=== PATIENT | female | born 2000 | race Caucasian/White ===

== ENCOUNTER 2021-03-02 11:23 | Emergency (ER) | payer OTHER, SELFPAY ==
--- NOTE | ~2021-03-02 | XR_ITS ---
EXAMINATION: XR soft tissue neck DATE: 03/02/2021 16:18 INDICATION: Throat pain. TECHNIQUE: 2 views of the neck soft tissues were obtained. COMPARISON: None. FINDINGS: The adenoids and palatine tonsils are enlarged. The epiglottis, prevertebral soft tissues, and glottis are normal. No radiopaque foreign body. IMPRESSION: 1. Enlarged adenoids and palatine tonsils. Reviewed, dictated and finalized at location A.
--- NOTE | ~2021-03-02 | XR_ITS ---
EXAMINATION: XR chest 2V DATE: 03/02/2021 12:02 INDICATION: Stuck pill , sternal pain. TECHNIQUE: PA and lateral views of the chest were obtained. COMPARISON: Chest radiograph dated 07/21/2013 FINDINGS: The lungs remain clear with no focal airspace opacities, pulmonary edema, pleural effusion or pneumot horax. No radiopaque foreign bodies or evident localized air-trapping. The cardiomediastinal silhouet te is normal. Visualized bones and soft tissues are unremarkable. IMPRESSION: 1. Normal chest radiograph. Reviewed, dictated and finalized at location A. IMPRESSION: 1. Normal chest radiograph.
[2021-03-02 11:39] VITALS: BP 117/79; PULSE 92; RESP 17; TEMP 36.8; O2SAT 98
[2021-03-02 14:16] VITALS: BP 129/77; PULSE 112; RESP 18; O2SAT 97
--- NOTE | 2021-03-02 16:04 | ECG_ITS ---
Measurements Intervals [place] Rate: 87 P: 62 [place]: 96 QRS: 64 QRSD: 90 T: 1 QT: 366 QTc: 440 Interpretive Statements ECTOPIC ATRIAL RHYTHM BORDERLINE T WAVE ABNORMALITY- INFERIOR LEADS ABNORMAL ECG Electronically Signed On 03-02-2021 20:13:32 CDT by Pedro Major D.O.
--- NOTE | 2021-03-02 16:05 | ED.GENADULT ---
HPI - General Adult General Chief complaint: Skin/Abscess/Foreign Body Stated complaint: esophagitis? Time Seen by Provider: 03/02/21 16:00 Source: RN notes reviewed History of Present Illness HPI narrative: Patient presents emergency department from home for throat pain. Patient states symptoms began on 02/26 when she attempted to swallow a doxycycline pill she states at that time she did feel like the pill becomes stuck in her throat states since that time she had pain in the lower midsternal chest that is worse with eating and swallowing she states she is able to eat and drink it just is more painful to do so she denies any fevers or chills shortness of breath abdominal pain nausea vomiting or any other symptoms Related Data Home Medications Medication Instructions Recorded Confirmed citalopram 20 mg tablet 20 mg PO DAILY 12/18/20 Allergies Allergy/AdvReac Type Severity Reaction Status Date / Time No Known Allergies Allergy Verified 12/18/20 13:08 Review of Systems Review of Systems: Gen.: Denies fevers or chills ENT: Reports throat pain Respiratory: Denies shortness of breath or cough CV: Denies chest pain or palpitations GI: Denies abdominal pain nausea, emesis or diarrhea Musculoskeletal: Denies back pain or muscle pain Neuro: Denies numbness, tingling, weakness or focal weakness Skin: Denies rash Except as documented, all other systems reviewed and negative [facility] Past Medical History Medical History Depression Surgical History Surgical History [place] teeth removed Social History Social History Smoking status: Never smoker Alcohol intake: never Drinks per week: 2 Substance use: never Exam Narrative: APPEARANCE: No acute distress, nontoxic, resting in bed EYES: EOMI HEENT: Normocephalic, atraumatic, OMM no erythema or exudate posterior pharynx tonsils 2+ uvula midline no trismus tolerating own secretions RESPIRATORY: No respiratory distress Clear to auscultation bilaterally with no rhonchi wheezing or rales. CARDIOVASCULAR: Regular rate and rhythm without murmurs rubs or gallops. ABDOMINAL: Soft, nontender, nondistended, no rebound or guarding MUSCULOSKELETAl: Moves all extremities. No clubbing, cyanosis or edema. NEURO: Awake and alert. Following commands, speech normal, no focal deficits SKIN:: Warm, dry. No rashes lesions or abrasions PSYCHIATRIC: Normal affect/mood, Course Course Emergency Course: Discussed with patient results of workup and diagnosis. Discussed need for follow-up with primary care, proper use of medication, and reasons to return to the emergency department. Patient understands and agrees to current treatment plan discussed with patient referral for GI with follow-up as an outpatient Vital Signs Vital signs: Vital Signs Temperature 98.2 F 03/02/21 11:39 Pulse Rate 92 03/02/21 11:39 Respiratory Rate 17 03/02/21 11:39 Blood Pressure 117/79 03/02/21 11:39 Pulse Oximetry 98 03/02/21 11:39 Temperature 98.2 F 03/02/21 11:39 Pulse Rate 95 03/02/21 16:20 Respiratory Rate 16 03/02/21 16:20 Blood Pressure 154/89 H 03/02/21 16:20 Pulse Oximetry 100 03/02/21 16:20 Medical Decision Making [facility] Narrative Medical decision making narrative: Patient presents emergency department from home for throat pain after taking doxycycline x-ray showed no acute process troponin D-dimer within normal limits as well as normal EKG there is no signs of foreign body seen on CT scan the patient is tolerating her own secretions feel this is likely esophagitis will start on Protonix with patient given GI for follow-up Vital Signs Vital Signs: Vital Signs Temperature 98.2 F 03/02/21 11:39 Pulse Rate 92 03/02/21 11:39 Respiratory Rate 17 03/02/21 11:39 Blood Pressure 117/79 03/02/21 11:3
[2021-03-02 16:20] VITALS: BP 154/89; PULSE 95; RESP 16; O2SAT 100
[2021-03-02 16:33] LABS: Basophils Percent Auto 0.5 % (0.2-1.2); Eosinophils Absolute Auto 0.2 K/mm3 (0-0.3); Eosinophils Percent Auto 2.6 % (0-4.4); Hematocrit 38.5 % (37.0-47.0); Hemoglobin 12.9 g/dL (12.0-15.0); Immature Granulocyte Absolute 0.02 K/mm3 (0.00-0.031); Immature Granulocyte Percent A 0.3 % (0-0.5); Lymphocytes Absolute Auto 1.62 K/mm3 (0.9-3.2); Lymphocytes Percent Auto 26.3 % (18.3-44.2); Mean Corpuscular HGB Conc 33.5 g/dl (32-36); Mean Corpuscular Volume 95.5 fl (80-100); Mean Platelet Volume 10.6 fl (7.4-10.4); Monocytes Absolute Auto 0.4 K/mm3 (0.1-0.6); Monocytes Percent Auto 6.3 % (2.6-8.5); Platelet Count Result 225 k/mm3 (150-375); Red Blood Count 4.03 M/mm3 (4.2-5.4); Red Cell Distribution Width 11.7 % (11.5-14.5); White Blood Count 6.2 K/mm3 (4.5-10.0)
[2021-03-02 16:42] LABS: Alanine Aminotransferase 18 U/L (4-35); Albumin Level 4.7 g/dL (3.5-5.1); Alkaline Phosphatase 66 U/L (38-126); Anion Gap 9 mmol/L (8-16); Aspartate Amino Transferase 25 U/L (14-36); Bilirubin,Total 0.8 mg/dL (0.2-1.3); Blood Urea Nitrogen 9 mg/dL (7-17); Calcium 9.6 mg/dL (8.4-10.2); Carbon Dioxide 26 mmol/L (22-30); Chloride 103 mmol/L (98-107); Estimated CRCL calculation 100 ml/min; Estimated Glomerular Filt Rate > 60; Glucose 90 mg/dL (65-110); Lipase 37 U/L (23-300); Sodium 138 mmol/L (137-145)
[2021-03-02] MEDS: ACETAMINOPHEN 500 MG TABLET 1000 MG PO (16:48)
[2021-03-02 17:37] LABS: D Dimer 0.27 ug/mL (<0.48)
[2021-03-02 17:47] LABS: Troponin I < 0.012 ng/mL (0.000-0.034)
[2021-03-02] MEDS: PANTOPRAZOLE 40 MG TABLET PO (17:59)
[2021-03-02 18:14] VITALS: BP 107/78; PULSE 84; RESP 18; O2SAT 100
== END 2021-03-02 18:17 | disposition home or self-care (01) ==
PROVIDERS: Emergency Provider Emergency Medicine; PCP Physician Assistant
DX: K20.90 Esophagitis, unspecified without bleeding (principal); F32.9 Major depressive disorder, single episode, unspecified
CPT/HCPCS: 36415; 70360; 71046; 80053; 83690; 84484; 85025; 85380; 87880; 93005; 99284; A9270

== ENCOUNTER 2021-03-11 09:35 | Outpatient (CLI) | payer OTHER, SELFPAY ==
--- NOTE | 2021-03-11 11:00 | NEURO_ITS ---
Impression: # Complains of numbness of hands. # Normal nerve conduction study with no evidence of Carpal Tunnel Syndrome or ulnar neuropathy. # Needle/EMG exam not requested. Nerve Conduction Studies Anti Sensory Summary Table Stim Site NR Peak (ms) P-T Amp (?V) Site1 Site2 Delta-P (ms) Dist (cm) Chirag (m/s) Left Median Anti Sensory (2-3nd Digit) Wrist 2.8 79.6 Wrist 2-3nd Digit 2.8 14.0 50 Wrist 2.8 91.5 Wrist 2-3nd Digit 2.8 14.0 50 Right Median Anti Sensory (2-3nd Digit) Wrist 2.8 56.8 Wrist 2-3nd Digit 2.8 14.0 50 Wrist 2.7 37.5 Wrist 2-3nd Digit 2.8 14.0 50 Left Radial Anti Sensory (Base 1st Digit) Wrist 1.8 35.3 Wrist Base 1st Digit 1.8 0.0 Right Radial Anti Sensory (Base 1st Digit) Wrist 2.1 23.7 Wrist Base 1st Digit 2.1 0.0 Left Ulnar Anti Sensory (5th Digit) Wrist 2.3 92.5 Wrist 5th Digit 2.3 14.0 61 Right Ulnar Anti Sensory (5th Digit) Wrist 2.3 55.2 Wrist 5th Digit 2.3 14.0 61 Motor Summary Table Stim Site NR Onset (ms) O-P Amp (mV) Site1 Site2 Delta-0 (ms) Dist (cm) Chirag (m/s) Left Median Motor (Abd Poll Brev) Wrist 2.5 7.1 Elbow Wrist 4.8 29.0 60 Elbow 7.3 6.5 Right Median Motor (Abd Poll Brev) Wrist 2.6 6.2 Elbow Wrist 4.6 29.0 63 Elbow 7.2 5.8 Left Ulnar Motor (Abd Dig Minimi) Wrist 2.4 6.3 A Elbow Wrist 5.2 31.0 60 A Elbow 7.6 5.2 Right Ulnar Motor (Abd Dig Minimi) Wrist 2.4 5.8 A Elbow Wrist 4.6 28.0 61 A Elbow 7.0 5.3 F Wave Studies NR F-Lat (ms) L-R F-Lat (ms) Left Median (Mrkrs) (Abd Poll Brev) 26.90 0.64 Right Median (Mrkrs) (Abd Poll Brev) 26.26 0.64 Left Ulnar (Mrkrs) (Abd Dig Min) 27.11 1.33 Right Ulnar (Mrkrs) (Abd Dig Min) 25.78 1.33 MTDD
== END 2021-03-11 09:36 | disposition home or self-care (01) ==
PROVIDERS: PCP Physician Assistant; Visit Provider Physician Assistant
DX: R20.2 Paresthesia of skin (principal)
CPT/HCPCS: 95911